=== PATIENT | female | born 1975 | race Two or more races ===

== ENCOUNTER → 2023-02-25 | Emergency (ER) | payer BC ==
[~2023-02-25] VITALS: Ht 167.6 cm; Wt 76.2 kg
[~2023-02-25] MED LIST: SERTRALINE20 MG/1 ML PO; WEGOVY0.5 MG/0.5 SQ
== END | disposition left against medical advice (07) ==
LOC: ER 21:47 → EDBD 21:47 → ER 23:31
DX: Z53.21 Procedure and treatment not carried out due to patient leaving prior to being seen by health care provider (principal)